=== PATIENT | male | born 1965 | race Hispanic/Latino ===

== ENCOUNTER 2018-12-01 11:12 | Observation (INO) | payer BC ==
[~2018-12-01] VITALS: Ht 185.4 cm; Wt 108.9 kg
[2018-12-01] MEDS ORDERED: SODIUM CHLORIDE 0.9% 1000ML 1,000 ML IV STA (11:28)
[2018-12-01] MEDS ORDERED: KETOROLAC TROMETHAMINE 30 MG/ML VIAL IV STA ×2 (11:28→17:32)
[2018-12-01] MEDS ORDERED: DIATRIZOATE MEGL/DIATRIZOA SOD 30 ML BTL PO ONE (11:45)
[2018-12-01 12:26] LABS: BASOPHILS # (AUTO) 0.1 (0.0-0.1); BASOPHILS % 0.4 % (0.0-1.0); EOSINOPHILS % 0.3 % (0.0-6.0); HEMATOCRIT 42.9 % (38.2-49.6); HEMOGLOBIN 14.9 g/dL (14.0-18.0); LYMPHOCYTES # (AUTO) 1.2 (1.0-3.2); LYMPHOCYTES % 10.1 % (18.0-39.1); MEAN CORPUSCULAR HGB CONC 34.7 g/dL (31-35); MEAN CORPUSCULAR VOLUME 92.3 fL (81-99); MONOCYTES # (AUTO) 0.7 (0.2-0.8); MONOCYTES % 5.6 % (4.4-11.3); NEUTROPHILS # (AUTO) 10.1 (2.1-6.9); NEUTROPHILS % 83.4 % (38.7-80.0); PLATELET COUNT 173 x10e3/uL (140-360); RED BLOOD COUNT 4.65 x10e6/uL (4.3-5.7); RED CELL DISTRIBUTION WIDTH 13.1 % (11.7-14.4)
[2018-12-01 12:46] LABS: BILIRUBIN,URINE NEGATIVE (NEGATIVE); CLARITY,URINE CLEAR (CLEAR); COLOR,URINE YELLOW (YELLOW); KETONES,URINE NEGATIVE (NEGATIVE); LEUKOCYTE ESTERASE ,URINE NEGATIVE (NEGATIVE); NITRITE,URINE NEGATIVE (NEGATIVE); PROTEIN,URINE DIPSTICK NEGATIVE (NEGATIVE); URINE UROBILINOGEN 0.2 mg/dL (0.2 - 1)
[2018-12-01 12:51] LABS: ALANINE AMINOTRANSFERASE 39 IU/L (0-55); ALBUMIN 4.1 g/dL (3.5-5.0); ALBUMIN/GLOBULIN RATIO 1.4 (0.8-2.0); ALKALINE PHOSPHATASE 70 IU/L (40-150); ANION GAP 13.4 mmol/L (8-16); BLOOD UREA NITROGEN 18 mg/dL (7-26); BUN/CREATININE RATIO 15 (6-25); CALCIUM 9.5 mg/dL (8.4-10.2); CARBON DIOXIDE 25 mmol/L (22-29); CHLORIDE 101 mmol/L (98-107); CREATINE KINASE 633 IU/L (30-200); CREATININE, SERUM 1.19 mg/dL (0.72-1.25); EST GLOMERULAR FILTRATION RATE > 60 ML/MIN (60-); GLUCOSE 83 mg/dL (74-118); LIPASE 21 U/L (8-78); POTASSIUM 3.4 mmol/L (3.5-5.1); SODIUM 136 mmol/L (136-145)
[2018-12-01] MEDS ORDERED: CEFTRIAXONE SOD 1 GM/NS 50 ML 50 ML IV ONE (13:00)
[2018-12-01 13:05] LABS: BACTERIA,URINE FEW /HPF; EPITHELIAL CELLS,URINE RARE /LPF
--- NOTE | 2018-12-01 14:26 | Diagnostic Imaging Report ---
CT of the abdomen and pelvis, with contrast, 12/01/2018. History: Right lower quadrant pain. Comparison: None available. Technique: Multidetector CT scanning of the abdomen and pelvis was performed from the level of the lung bases to the inferior pubic rami after intravenous and oral administration of contrast. Coronal and sagittal multiplanar reformations were obtained. RADIATION DOSE: Total DLP: 675 mGy*cm Dose modulation, iterative reconstruction, and/or weight based adjustment of the mA/kV was utilized to reduce the radiation dose to as low as reasonably achievable. Discussion: LUNG BASES: There is bibasilar dependent atelectasis. ABDOMEN: A 5 mm hypodensity is present in the right hepatic dome which is too small to characterize. The liver, gallbladder, biliary tree, spleen, pancreas, adrenal glands, and kidneys are otherwise normal. The hepatic vein, portal vein, and splenic vein are patent. The abdominal aorta is within normal limits for size. The stomach and small bowel are unremarkable. The proximal appendix is air-filled. The tip of the appendix is fluid-filled measuring 8 mm in diameter with minimal adjacent mesenteric fat stranding. There is no evidence of free air or focal fluid collection. There is no evidence of adenopathy or free fluid. PELVIS: The bladder, prostate, and seminal vesicles are normal in appearance. There is no evidence of free fluid or adenopathy. Bilateral fat-containing inguinal hernias. BONES AND SOFT TISSUES: Degenerative changes are present throughout the lumbar spine without evidence of lytic or sclerotic lesion. IMPRESSION: 1. Findings suggestive of tip appendicitis. Correlate clinically. 2. Subcentimeter hepatic hypodensity which is too small to characterize. Otherwise unremarkable CT of the abdomen and pelvis. Signed by: Michael Kaufman on 12/01/2018 2:23 PM
[2018-12-01] MEDS ORDERED: IOPAMIDOL 370 MG/ML 200 ML INFUS..BTL INJ ONE (14:36)
[2018-12-01] MEDS ORDERED: SODIUM CHLORIDE 0.9% 50ML 50 ML ONE (14:36)
[2018-12-01] MEDS ORDERED: MORPHINE SULFATE INJ 4 MG/ML INJ 1ML IV PRN (17:45)
--- OUTSIDE RECORDS SUMMARY | 2018-12-01 17:58 | XMS REPORT ---
Author Author [facility] Address Unknown Phone Unavailable Care Team Providers Care Mediation Commissioner Name Role Phone Christal DELAROSA Unavailable Unavailable Problems This patient has no known problems. Allergies, Adverse Reactions, Alerts This patient has no known allergies or adverse reactions. Medications This patient has no known medications. Results Test Description Test Time Test Comments Text Results Atomic Results Result Comments CT ABDOMEN/PELVIS W 2018-12-01 14:09:00 [place] [id number] Patient Name: TIA CARRANZA MR #: [id number] : 1965 Age/Sex: 53/M Req #: [id number] [facility] Physician: Ordered by: ERIC DELAROSA MD Report #: [id number] Location: ER Room/Bed: Procedure: [id number] CT/CT ABDOMEN/PELVIS W Exam Date: 12/01/18 Exam Time: 1310 REPORT STATUS: Signed CT of the abdomen and pelvis, with contrast, 2018. History: Right lower quadrant pain. Comparison: None available. Technique: Multidetector CT scanning of the abdomen and pelvis was performed from the level of the lung bases to the inferior pubic rami after intravenous and oral administration of contrast. Coronal and sagittal multiplanar reformations were obtained. RADIATION DOSE: Total DLP: 675 mGy*cm Dose modulation, iterative reconstruction, and/or weight based adjustment of the mA/kV was utilized to reduce the radiation dose to as low as reasonably achievable. Discussion: LUNG BASES: There is bibasilar dependent atelectasis. ABDOMEN: A 5 mm hypodensity is present in the right hepatic dome which is too small to characterize. The liver, gallbladder, biliary tree, spleen, pancreas, adrenal glands, and kidneys are otherwise normal. The hepatic vein, portal vein, and splenic vein are patent. The abdominal aorta is within normal limits for size. The stomach and small bowel are unremarkable. The proximal appendix is air-filled. The tip of the appendix is fluid-filled measuring 8 mm in diameter with minimal adjacent mesenteric fat stranding. There is no evidence of free air or focal fluid collection. There is no evidence of adenopathy or free fluid. PELVIS: The bladder, prostate, and seminal vesicles are normal in appearance. There is no evidence of free fluid or adenopathy. Bilateral fat-containing inguinal hernias. BONES AND SOFT TISSUES: Degenerative changes are present throughout the lumbar spine without evidence of lytic or sclerotic lesion. IMPRESSION: 1. Findings suggestive of tip appendicitis. Correlate clinically. 2. Subcentimeter hepatic hypodensity which is too small to characterize. Otherwise unremarkable CT of the abdomen and pelvis. Signed by: Manpreet Kaufman on 12/01/2018 2:23 PM Dictated By: MANPREET KAUFMAN MD [id number] Transcribed By: PRINCE on 12/01/18 1423 COPY TO: ERIC DELAROSA MD
--- NOTE | 2018-12-01 18:30 | NUR ---
RECEIVED TO RM AAOX3 NO DISTRESS NOTED, UPDATED ON POC VOICED UNDERSTANDING, PT MADE COMFORTABLE VS STABLE, CALL LIGHT IN REACH WILL CONTINUE TO MONITOR
[2018-12-01 18:34] VITALS: BP 135/73
--- NOTE | 2018-12-01 19:14 | NUR ---
BEDSIDE SHIFT REPORT PERFORMED, RECEIVED PT LAYING SEMI FOWLERS IN BED, AAOX3, RR EVEN AND NON-LABORED, ON ROOM AIR. NO S/SX OF DISTRESS NOTED. LEFT PT LAYING SEMI FOWLERS IN BED, BED IN LOW LOCKED POSITION, SIDE RAILS UPX2, CALL LIGHT AND PHONE WITHIN REACH.
--- NOTE | 2018-12-01 19:45 | NUR ---
PAGE PLACED FOR MD HUNTER CONCERNING POSSIBLE CONSULTATION FOR MD Roma WALKER, RECEVED IN REPORT MD Roma WALKER CONSULTED FOR POSSIBLE SX FOR ACUTE APPENDICITIS BUT NO CONSULTATION WAS ENTERED. WAITING FOR CALLBACK.
[2018-12-01] MEDS ORDERED: ACETAMINOPHEN 325 MG TAB PO PRN (20:00)
--- NOTE | 2018-12-01 20:02 | NUR ---
SPOKE WITH MD HUNTER CONCERNING NEW ADMIT AND RECEIVED IN REPORT CONSULT FOR Roma WALKER. NEW ORDERS RECEIVED FOR CONSULTATION AND MEDICATIONS.
[2018-12-01 20:06] VITALS: BP 142/77
[2018-12-01 20:27] VITALS: BP 142/77
[2018-12-01 20:45] VITALS: BP 142/77
[2018-12-01] MEDS: PIPER-TAZ 3.375 GM 50 ML IV SCH (20:57)
[2018-12-01] MEDS: SODIUM CHLORIDE 0.9% 1000ML 1,000 ML IV SCH (20:57)
--- NOTE | 2018-12-01 21:41 | NUR ---
PT PERFORMED SELF FIRST PRE-OP HIBICLENS SHOWER.
[2018-12-01] MEDS: ONDANSETRON HCL INJ 2MG/ML 2ML 2 MG/ML VIAL IV PRN (23:05)
[2018-12-02] VITALS (9 sets, daily range): BP systolic 100–140; BP diastolic 54–73
[2018-12-02] MEDS: PIPER-TAZ 3.375 GM 50 ML IV SCH ×3 (05:34→22:20)
[2018-12-02] MEDS: SODIUM CHLORIDE 0.9% 1000ML 1,000 ML IV SCH ×2 (05:34→08:22)
[2018-12-02 06:29] LABS: BASOPHILS % 0.3 % (0.0-1.0); EOSINOPHILS # (AUTO) 0.1 (0.0-0.4); EOSINOPHILS % 0.8 % (0.0-6.0); HEMATOCRIT 39.2 % (38.2-49.6); HEMOGLOBIN 13.5 g/dL (14.0-18.0); LYMPHOCYTES # (AUTO) 1.1 (1.0-3.2); LYMPHOCYTES % 11.8 % (18.0-39.1); MEAN CORPUSCULAR HEMOGLOBIN 32.2 pg (28-32); MEAN CORPUSCULAR HGB CONC 34.4 g/dL (31-35); MEAN CORPUSCULAR VOLUME 93.6 fL (81-99); MONOCYTES # (AUTO) 0.7 (0.2-0.8); NEUTROPHILS # (AUTO) 7.6 (2.1-6.9); NEUTROPHILS % 79.8 % (38.7-80.0); PLATELET COUNT 151 x10e3/uL (140-360); RED BLOOD COUNT 4.19 x10e6/uL (4.3-5.7); RED CELL DISTRIBUTION WIDTH 13.2 % (11.7-14.4)
--- NOTE | 2018-12-02 07:33 | NUR ---
Received patient with eyes open. Respiration even and unlabored without SOB. Call light within reach.
[2018-12-02] MEDS ORDERED: POTASSIUM CHLORIDE 20MEQ/100ML 200 ML IV ONE (10:00)
--- NOTE | 2018-12-02 11:20 | NUR ---
Patient went to surgery at this time.
--- NOTE | 2018-12-02 11:24 | History and Physical ---
CHIEF COMPLAINT: Right lower quadrant abdominal pain. HISTORY OF PRESENT ILLNESS: This is a 53-year-old male with known history of hypertension, currently not on any medications, presented to the emergency department with acute onset of periumbilical abdominal pain that radiated to his right lower quadrant that began yesterday morning. The patient reports that he was doing his normal activities, noticed that he had sudden onset of pain after he ate breakfast in the periumbilical area. Then, later in the day, it radiated to his right lower quadrant of the abdomen. He initially thought that he had some indigestion and thought maybe because of the food he ate, but took some Tums, but with no relief and came into the emergency department for further evaluation. Imaging studies were consistent with acute appendicitis requiring further intervention and management. The patient is seen and evaluated at bedside on the medical floor. He is currently doing well. He is n.p.o. Vital signs are stable when I evaluated him and has been evaluated by General Surgery. REVIEW OF SYSTEMS: Pertinent positives: Right lower quadrant abdominal pain. Pertinent negatives: Denies any chest pain, palpitation, nausea, vomiting, diarrhea, dysuria, hematuria, frequency, urgency, lightheadedness, dizziness, cough, congestion, fever, or any other complaints. The rest of 14-point review of systems have been reviewed with the patient and are negative. ALLERGIES: NO KNOWN DRUG ALLERGIES. HOME MEDICATIONS: None. PAST MEDICAL HISTORY: Hypertension. PAST SURGICAL HISTORY: Reports none. FAMILY HISTORY: Hypertension, diabetes. SOCIAL HISTORY: No drugs. No alcohol. Does not smoke. Good social support. PHYSICAL EXAMINATION: VITAL SIGNS: Temperature 97.6, pulse 68, respiratory rate 17, blood pressure 121/68, pulse ox 98% on room air. GENERAL: Not in acute distress. Alert and oriented x3. Cooperative on examination. HEENT: Head; normocephalic and atraumatic. Eyes; pupils are equal, round, and reactive to light bilaterally. Extraocular Movements are intact bilaterally. Throat; no evidence of erythema or exudates in the posterior pharynx. Has poor dentition. NECK: Supple. Good range of motion. PULMONARY: Clear to auscultation bilaterally. No wheezing, no rales, no rhonchi, and no crackles appreciated. CARDIOVASCULAR: Positive S1 and S2. No murmurs, rubs, or gallops appreciated. GI: Abdomen is soft, nondistended. Bowel sounds present. He was tender to palpation in the right lower quadrant. No rebound or guarding appreciated. MUSCULOSKELETAL: Strength is 5/5 throughout. No evidence of any muscle deficits on examination. No weakness appreciated. NEUROLOGIC: Cranial nerves II through XII grossly intact. No evidence of any neurological deficits on exam. SKIN: Intact. Warm to touch. Good cap refill. PSYCHIATRIC: Normal affect and mood. EXTREMITIES: No edema. Good range of motion throughout. LABORATORY FINDINGS: Show white count 9.5, hemoglobin 13.5, hematocrit 39.2, and platelets of 151. Chemistry; sodium 136, potassium 3.4, chloride 101, bicarb 25, anion gap of 13, BUN is 18, creatinine is 1.1, glucose is 83, calcium 9.5, total bilirubin was 0.7, AST 32, ALT 39, alkaline phosphatase 70, CK 633. Troponins were negative. Total protein 7, albumin 4.1, lipase is 21. Urinalysis was negative. IMAGING STUDIES: CT abdomen and pelvis findings suggestive of tip appendicitis. Subcentimeter hepatic hypodensity, which is too small to characterize. Otherwise, unremarkable CT of the abdomen and pelvis. IMPRESSION: 1. Acute appendicitis. 2. Nausea/vomiting/dehydration. 3. History of hypertension. PLAN: At this time, the patient is currently doing well with no issues. General Surgery was consulted. He is on IV antibiotics, Zosyn. Continue with n.p.o., pain control, IV fluids. Follow General Surgery recommendations. Resume same home medications. Put on SCDs for DVT prophylaxis in the event he needs any kind of surgery. Replace potassium accordingly. I discussed plan of care with nursing staff and the patient at bedside. MD ROWAN Kelly/GLENN /[id number]
[2018-12-02] MEDS ORDERED: BUPIVACAINE 0.25%/EPI 30ML SDV INJ ONE (11:34)
[2018-12-02] MEDS ORDERED: SUGAMMADEX SODIUM 200 MG/2 ML VIAL IV ONE (12:21)
[2018-12-02] MEDS ORDERED: MEPERIDINE HCL INJ 25 MG/ML VIAL ONE (12:43)
--- NOTE | 2018-12-02 13:14 | NUR ---
Received patient back from OR. Respiration even and unlabored without SOB. Pain level 5 on 0-10 scale on the abdominal area. Spouse at bedside. Call light within reach.
--- NOTE | 2018-12-02 13:30 | Operative Report ---
DATE OF PROCEDURE: 12/02/2018 SURGEON: Ryan Gabriel MD PREOPERATIVE DIAGNOSIS: Acute appendicitis. POSTOPERATIVE DIAGNOSIS: Acute appendicitis. OPERATION PERFORMED: Laparoscopic appendectomy. ANESTHESIA: General. COMPLICATIONS: None. ESTIMATED BLOOD LOSS: Minimal. DESCRIPTION OF PROCEDURE: With the patient lying in bed in the supine position under good general endotracheal anesthesia, the abdomen was prepped with Betadine solution and draped in the usual manner. A Veress needle was introduced into the umbilicus and pneumoperitoneum was established without any difficulty. A 12 mm trocar was placed into the umbilicus and a 10 mm video laparoscope was placed into the intraabdominal cavity. Under direct vision, a 5 mm trocar was placed in the suprapubic region and another 5 mm trocar was placed in the left lower quadrant. Video laparoscopy at this point revealed an acutely inflamed nonperforated appendix. The rest of the abdominal exploration appeared to be within normal limits. The base of the appendix was then dissected and the base of the appendix was divided with an application of the Endo-DESIREE stapler without any difficulty. The vascular pedicle was then divided with the Endo-DESIREE vascular stapler. Perfect hemostasis was ascertained. The appendix was then placed in a pouch and removed through the umbilicus without any difficulty. Video laparoscopy was then again carried out. The liver bed was found to be perfectly dry. The surgical site at the base of the appendix showed perfect hemostasis. All of the excess fluid was aspirated. The pneumoperitoneum was evacuated and all the trocars were removed under direct vision. The midline fascia at the umbilicus was then closed with a [id number] of 0 Vicryl. All layers were infiltrated on the way out with solution of 0.25% Marcaine. Subcutaneous tissue was approximated with 3-0 Vicryl and the skin was closed with subcuticular 5-0 Vicryl. Benzoin, Steri-Strips and Band-Aids were applied. The sponge, lap, and needle count was correct. The patient tolerated the procedure well and returned to the recovery room in stable condition. Ryan Gabriel MD JLR/MODL /[id number]
[2018-12-02] MEDS: ONDANSETRON HCL INJ 2MG/ML 2ML 2 MG/ML VIAL IV PRN (13:46)
[2018-12-02] MEDS: HYDROCODONE/APAP 7.5MG-325MG 1 EA TAB PO PRN ×2 (18:32→23:00)
--- NOTE | 2018-12-02 19:00 | NUR ---
BEDSIDE SHIFT REPORT PERFORMED, RECEIVED PT LAYING SEMI FOWLERS IN BED, AAOX3, RR EVEN AND NON-LABORED, ON ROOM AIR. NO S/SX OF DISTRESS NOTED. X3 TROCAR SITES NOTED TO ANTERIOR ABD. LEFT PT LAYING SEMI FOWLERS IN BED, BED IN LOW LOCKED POSITION, SIDE RAILS UPX2, CALL LIGHT AND PHONE WITHIN REACH.
[2018-12-02] MEDS ORDERED: ONDANSETRON HCL INJ 2MG/ML 2ML 2 MG/ML VIAL ONE (19:12)
[2018-12-02] MEDS ORDERED: PROPOFOL IV EMULSION 10 MG/ML 20 ML VIAL ONE (19:12)
[2018-12-02] MEDS ORDERED: DEXAMETHASONE SOD PHOS INJ 4 MG/ML VIAL ONE (19:12)
[2018-12-02] MEDS ORDERED: ROCURONIUM BROMIDE 10 MG/ML 5ML VIAL ONE (19:12)
[2018-12-02] MEDS ORDERED: LIDOCAINE HCL 2% LOCAL INJ 5 ML SDV VIAL INJ ONE (19:12)
[2018-12-02] MEDS ORDERED: SEVOFLURANE INHAL SOLN 250 ML PEN BTL ONE (19:12)
[2018-12-02] MEDS ORDERED: MIDAZOLAM HCL 2 MG/2 ML VIAL ONE (19:35)
[2018-12-02] MEDS ORDERED: FENTANYL CITRATE/PF 100MCG/2 ML INJ ONE (19:35)
[2018-12-03] MEDS: SODIUM CHLORIDE 0.9% 1000ML 1,000 ML IV SCH (02:00)
[2018-12-03 04:45] VITALS: BP 118/56
[2018-12-03] MEDS: HYDROCODONE/APAP 7.5MG-325MG 1 EA TAB PO PRN ×2 (04:46→12:24)
[2018-12-03] MEDS: PIPER-TAZ 3.375 GM 50 ML IV SCH ×2 (05:29→14:32)
[2018-12-03 06:15] LABS: BASOPHILS % 0.3 % (0.0-1.0); EOSINOPHILS % 0.3 % (0.0-6.0); HEMOGLOBIN 12.9 g/dL (14.0-18.0); LYMPHOCYTES # (AUTO) 1.3 (1.0-3.2); LYMPHOCYTES % 14.2 % (18.0-39.1); MEAN CORPUSCULAR HEMOGLOBIN 32.7 pg (28-32); MEAN CORPUSCULAR HGB CONC 34.9 g/dL (31-35); MEAN CORPUSCULAR VOLUME 93.7 fL (81-99); MONOCYTES # (AUTO) 0.7 (0.2-0.8); MONOCYTES % 7.5 % (4.4-11.3); NEUTROPHILS # (AUTO) 6.8 (2.1-6.9); NEUTROPHILS % 77.5 % (38.7-80.0); PLATELET COUNT 144 x10e3/uL (140-360); RED BLOOD COUNT 3.95 x10e6/uL (4.3-5.7); RED CELL DISTRIBUTION WIDTH 13.1 % (11.7-14.4)
[2018-12-03 06:31] LABS: ANION GAP 10.7 mmol/L (8-16); BLOOD UREA NITROGEN 11 mg/dL (7-26); BUN/CREATININE RATIO 10 (6-25); CALCIUM 8.4 mg/dL (8.4-10.2); CARBON DIOXIDE 25 mmol/L (22-29); CHLORIDE 106 mmol/L (98-107); CREATININE, SERUM 1.11 mg/dL (0.72-1.25); EST GLOMERULAR FILTRATION RATE > 60 ML/MIN (60-); GLUCOSE 98 mg/dL (74-118); POTASSIUM 3.7 mmol/L (3.5-5.1); SODIUM 138 mmol/L (136-145)
--- NOTE | 2018-12-03 07:20 | NUR ---
Received patient lying in bed with eyes open. respiration even and unlabored without SOB. Family member at bedside. Call light in reach.
[2018-12-03 07:33] VITALS: BP 115/62
[2018-12-03 09:10] VITALS: BP 115/62
[2018-12-03 11:25] VITALS: BP 125/59
[2018-12-03 15:34] VITALS: BP 115/59
[2018-12-03] MEDS ORDERED: TYLENOL WITH C1 EACH PO (16:47)
[2018-12-03] MEDS ORDERED: KEFLEX500 MG PO (16:48)
--- NOTE | 2018-12-03 17:00 | NUR ---
Patient transported for discharge via wheelchair. Respiration even and unlabored without SOB.
--- NOTE | 2018-12-04 19:43 | Discharge Summary ---
FINAL DISCHARGE DIAGNOSES: 1. Acute appendicitis, status post laparoscopic appendectomy. 2. Nausea, vomiting, dehydration, resolved. 3. History of hypertension. CONSULTANTS: General surgery. PHYSICAL EXAMINATION: VITAL SIGNS: Temperature is 96.1, pulse rate 59, respiratory rate 17, blood pressure 115/59, and pulse ox 96% on room air. LAB FINDINGS: Show white count 8.7, hemoglobin 12.9, hematocrit is 37, platelets of 144. Chemistry; sodium 138, potassium 3.7, chloride 106, bicarb 25, anion gap of 10, BUN is 11, creatinine is 1.1, glucose is 98, calcium is 8.4. LFTs were within normal range. Troponins were all negative albumin 4.1, lipase was 21. Urinalysis was negative. MICROBIOLOGY: None. IMAGING STUDIES: CT abdomen and pelvis findings suggestive of tip appendicitis. Subcentimeter hepatic hypodense, which is too small to characterize. Needs outpatient followup in relation to his liver subcentimeter hypodensities. I discussed this with the patient at bedside. He verbalized to follow up accordingly with his primary care physician with outpatient followup. HOSPITAL COURSE: This is a 53-year-old male, who came into the ED with complaints of periumbilical abdominal pain that radiated to his right lower quadrant on the day of admission. While here, the CT imaging was consistent with acute appendicitis. General surgery, Dr. Gabriel was consulted. The patient underwent status post laparoscopic appendectomy with no postop complications. He was on IV antibiotics as well, as well as pain control. He was started on a clear liquid diet, advanced to regular diet, and which he tolerated well. He was ambulating with no complaints. He was back to normal baseline. He was discharged on oral pain control as well as oral antibiotics. On the day of discharge, he was back to normal baseline. He had no other complaints. On day of discharge, vital signs were stable. Labs reviewed and stable. The patient was seen and evaluated, examined thoroughly on the day of discharge. No other complaints. The patient verbalized understanding and agrees to plan of care to follow up accordingly as an outpatient with the primary care physician in 1 week and the General Surgeon in about 7 to 10 days. The patient was cleared for discharge by General Surgery. MEDICATIONS: See med reconciliation form. DISPOSITION: Home. CONDITION: Stable. DIET: Heart healthy. In the event of any worsening symptoms, the patient was advised to come back to the ED for further evaluation. Discharge summary took greater than 35 minutes. The patient was advised not to left up anything greater than 10 pounds until he follows up with the General Surgeon. MD ROWAN Kelly/MODL /[id number]
== END 2018-12-03 17:08 | disposition home or self-care (01) ==
LOC: ER 11:12 → ERHOLD 17:32 → INTOOBSV 17:32 → MED/SURG 18:15
PROVIDERS: ADMIT Internal Medicine; ATTEND Internal Medicine
DX: K35.80 Unspecified acute appendicitis (principal); E86.0 Dehydration; I10 Essential (primary) hypertension
CPT/HCPCS: 36415 ×3; 44970; 74177; 80048; 80053; 81001; 82550; 82553; 83690; 84484; 85025 ×3; 88304; 93005; 96360; 96361; 99284; C1766; G0378 ×3; J0696; J1100; J1885; J2001; J2175; J2250; J2270; J2405 ×2; J2543 ×3; J2704; J3010; J3480; J7030 ×2; Q9967